=== PATIENT | female | born 1970 | race Caucasian/White ===

== ENCOUNTER 2018-03-21 22:04 | Observation (INO) | payer OTHER ==
[~2018-03-21] VITALS: Ht 160 cm; Wt 81.6 kg
[~2018-03-21 22:04] MED LIST: ACETAMINOPHEN-1 EAC1 PO; ALBUTEROL INHAL17 GM IH; AMOXICILLIN 50500 MG PO; ASPIR 8181 MG PO; AURALGAN EAR DR14 ML OT; AZITHROMYCIN 2250 MG PO; BACTRIM DS TAB1 EACH PO; CARAFATE 1 GM TA1 G1 PO; CLARITIN10 MG PO; COLACE100 MG PO; FLEXERIL PO; HYDROCODONE-AP1 EAC6 PO; IBUPROFEN 800800 M1 PO; IBUPROFEN 800800 MG PO; KEFLEX500 MG PO; LIDOCAINE VISC100 M1 MM; LIPITOR10 MG PO; MEDROLDOSEPACK PO; MOBIC7.5 M1 PO; NAPROSYN500 MG PO; NOHOMEMEDICATIONS; NORCO 5-325 TA1 EACH PO; PEPCID40 MG PO; POLYMYXIN B/TMP10 ML OP; PREDNISONE 20 M20 MG PO; PRILOSEC 20 MG20 MG PO; PRILOSEC OTC20 MG PO; PRILOSEC20 MG PO; ROBAXIN 750 MG750 M1 PO; SENOKOT-S1 TA2 PO; TESSALON PERLE100 MG PO; TRAMADOL 50 MG50 MG PO; ULTRAM 50MG TAB50 MG PO; VENTOLIN HFA 1818 GM INH; VICODIN 5-5001 EACH PO; VISINE ALLERGY30 ML OP; ZOFRAN ODT4 MG PO; ZOFRAN4 MG PO; ZPAK PO
[2018-03-21 22:06] VITALS: BP 137/72
[2018-03-21] MEDS ORDERED: ZANAFLEX4 MG PO (22:18)
[2018-03-21 22:45] LABS: ABSOLUTE BASOPHILS 0.1 thou/uL (0.0-0.2); ABSOLUTE EOSINOPHILS 0.4 thou/uL (0.0-0.7); ABSOLUTE LYMPHOCYTES 2.3 thou/uL (0.8-5.3); ABSOLUTE MONOCYTES 0.8 thou/uL (0.0-1.2); ABSOLUTE NEUTROPHILS 5.1 thou/uL (1.6-8.1); HEMATOCRIT 38.4 % (37.0-47.0); HEMOGLOBIN 13.1 gm/dL (12.0-15.0); LYMPHOCYTES 26.6 %; MCH 30.2 pg (26.0-34.0); MCV 88.8 fL (80.0-100.0); MONOCYTES 9.7 %; NUCLEATED RBCS 0 /100WBC; PLATELET COUNT* 190 thou/uL (150-400); POLYS 58.7 %; RBC 4.32 mil/uL (4.20-5.00); RDW-CV 13.9 % (10.5-14.5); WBC 8.7 thou/uL (4.0-11.0)
[2018-03-21 22:56] LABS: ANION GAP 8 mmol/L (7-16); BUN 10 mg/dL (7-18); CALCIUM 8.4 mg/dL (8.5-10.1); CHLORIDE 106 mmol/L (98-107); CO2 26 mmol/L (21-32); CREATININE 0.6 mg/dL (0.6-1.3); GLUCOSE 126 mg/dL (70-99); POTASSIUM 3.6 mmol/L (3.5-5.1); SODIUM 140 mmol/L (136-145)
[2018-03-21 23:04] LABS: ALBUMIN 3.4 g/dL (3.4-5.0); ALKALINE PHOSPHATASE 69 U/L (46-116); SGOT 11 U/L (15-37); SGPT 24 U/L (30-65); TOTAL BILIRUBIN 0.3 mg/dL (<0.1-1.0); TROPONIN-I LEVEL <0.06 ng/mL (<0.06)
[2018-03-21 23:14] LABS: URINE BILIRUBIN NEGATIVE (Negative); URINE BLOOD NEGATIVE (Negative); URINE CLARITY CLEAR; URINE COLOR YELLOW; URINE GLUCOSE-RANDOM NEGATIVE (Negative); URINE KETONES NEGATIVE (Negative); URINE LEUKOCYTES-REFLEX NEGATIVE (Negative); URINE NITRITE-REFLEX NEGATIVE (Negative); URINE PROTEIN NEGATIVE (Negative); URINE SPECIFIC GRAVITY 1.025 (1.005-1.030)
[2018-03-22 02:29] VITALS: BP 127/73
[2018-03-22 02:45] VITALS: BP 99/31
[2018-03-22 08:00] VITALS: BP 92/50
[2018-03-22 09:00] VITALS: BP 111/57
[2018-03-22 11:00] VITALS: BP 111/57
--- NOTE | 2018-03-22 13:51 | 2DMMODE ---
[place] [address] 2 D/M-MODE ECHOCARDIOGRAM Name: ANTOINETTE REBOLLAR Room: [address] IN .R.#: [id number] Admission: 03/22/18 Attend Phys: Raul Jolly, Discharge: Date of : 66 Date of Service: 03/22/18 1350 Report #: [id number] THIS REPORT FOR: //name// APPROVED REPORT Study performed: 03/22/2018 10:25:50 EXAM: Comprehensive 2D, Doppler, and color-flow Echocardiogram Patient Location: Bedside BSA: 1.83 HR: 53 bpm BP: 92/50 mmHg Other Information Study Quality: Good Indications Chest Pain 2D Dimensions LVEF(%): 49.12 (>50%) IVSd: 11.12 (7-11mm) LVOT Diam: 19.23 (18-24mm) LVDd: 38.76 mm PWd: 9.19 (7-11mm) Ascending Ao: 24.14 (22-36mm) LVDs: 29.30 (25-40mm) Aortic Root: 24.75 mm Purcell's LVEF: 49.12 % Volumes Left Atrial Volume (Systole) LA ESV Index: 25.60 mL/m2 Aortic Valve AoV Peak Jeronimo.: 1.29 m/s AO Peak Gr.: 6.63 mmHg LVOT Max P.69 mmHg AO Mean Gr.: 3.53 mmHg LVOT Mean P.55 mmHg LVOT Max V: 0.96 m/s AO V2 VTI: 27.61 cm LVOT Mean V: 0.56 m/s DESI (VTI): 2.53 cm2 LVOT V1 VTI: 24.06 cm Mitral Valve E/A Ratio: 1.87 MV Decel. Time: 211.34 ms MV E Max Jeronimo.: 0.85 m/[place] [address] 2 D/M-MODE ECHOCARDIOGRAM Name: ANTOINETTE REBOLLAR Room: [address] IN .R.#: [id number] Admission: 03/22/18 Attend Phys: Raul Jolly, Discharge: Date of : 66 Date of Service: 03/22/18 1350 Report #: [id number] MV PHT: 61.29 ms MVA (PHT): 3.59 cm2 TDI E/Lateral E': 5.67 E/Medial E': 5.31 Medial E' Jeronimo.: 0.16 m/s Lateral E' Jeronimo.: 0.15 m/s Pulmonary Valve PV Peak Jeronimo.: 0.85 m/s PV Peak Gr.: 2.89 mmHg Tricuspid Valve RAP Estimate: 5.00 mmHg TR Peak Gr.: 29.63 mmHg RVSP: 34.63 mmHg PA Pressure: 34.63 mmHg Left Ventricle The left ventricle is normal size. There is normal LV segmental wall motion. There is normal left ventricular wall thickness. Left ventricular systolic function is normal. LVEF is 60-65%. The left ventricular diastolic function is normal. Right Ventricle The right ventricle is normal size. The right ventricular systolic function is normal. Atria The left atrium size is normal. The right atrium size is normal. Aortic Valve The aortic valve is normal in structure. No aortic regurgitation is present. There is no aortic valvular stenosis. Mitral Valve The mitral valve is normal in structure. Trace mitral regurgitation. No evidence of mitral valve stenosis. Tricuspid Valve The tricuspid valve is normal in structure. Trace tricuspid regurgitation. Pulmonic Valve The pulmonary valve is normal in structure. There is no [place]mon[place] [address] 2 D/M-MODE ECHOCARDIOGRAM Name: ANTOINETTE REBOLLAR Room: [address] IN [facility]#: [id number] Admission: 03/22/18 Attend Phys: Raul Jolly, Discharge: Date of : 66 Date of Service: 03/22/18 1350 Report #: [id number] Great Vessels The aortic root is normal in size. IVC is normal in size and collapses with >50% inspiration Pericardium There is no pericardial effusion. <Conclusion> The left ventricle is normal size. There is normal left ventricular wall thickness. Left ventricular systolic function is normal. LVEF is 60-65%. The left ventricular diastolic function is normal. Trace mitral regurgitation. Trace tricuspid regurgitation. IVC is normal in size and collapses with >50% inspiration <ELECTRONICALLY SIGNED> By: Gustabo Lemon MD, FACC 03/22/18 1350 1350 1350 Gustabo Lemon MD, FACC /INF
--- NOTE | 2018-03-22 14:03 | EKG ---
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
--- NOTE | 2018-03-22 14:04 | EKG ---
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
--- NOTE | 2018-03-22 16:58 | CARDNUC ---
[place] [address] CARDIAC NUCLEAR IMAGING REPORT Name: ANTOINETTE REBOLLAR Room: [address] IN [facility]#: [id number] Admission: 03/22/18 Attend Phys: Raul Jolly, Discharge: Date of : 66 Date of Service: 03/22/18 1658 Report #: [id number] THIS REPORT FOR: //name// APPROVED REPORT Study performed: 03/22/2018 00:00:00 Indication: Chest pain, Dyspnea Patient Location: In-Patient Room #: 209 Stress Tech: Mary Medrano Stress Nurse: Sharon Guy RN Ht: 5 ft 3 in Wt: 180 lbs BSA: 1.85 m2 BMI: 31.88 Medical History Medical History: hyperlipidemia Medications: no cardiac meds Allergies: nkda Cardiac Risk Factors: age, hyperlipidemia, tobacco Previous Cardiac Procedures: none Exercise History: Physically active Stress Test Details Stress Test: Pharmacologic stress testing performed using 0.4 mg of regadenoson per 5 mL given IV over 10 seconds. Reason for pharmacologic stress test: physical limitation. HR Resting HR: 59 bpm Max Heart Rate (APMHR): 170 bpm Max HR Achieved: 105 bpm Target HR (85% APMHR): 144 bpm % of APMHR: 61 Recovery HR: 65 bpm BP Resting BP: 113/61 mmHg Max BP: 120/67 mmHg ECG Resting ECG: Sinus Rhythm, normal EKG Stress ECG: Sinus Tachycardia ST Change: None Arrhythmia: None Recovery ECG: Sinus Rhythm, [place] [address] CARDIAC NUCLEAR IMAGING REPORT Name: ANTOINETTE REBOLLAR Room: [address]#: [id number] Admission: 03/22/18 Attend Phys: Raul Jolly, Discharge: Date of : 66 Date of Service: 03/22/18 1658 Report #: [id number] Change: None Recovery Arrhythmia: None Clinical Reason for Termination: Completed protocol Stress Symptoms: none Exercise duration: 0 min sec Exercise capacity: 1 METs The patient had atypical symptoms related to Lexiscan. She did not have chest discomfort. Nurse Comments lexiscan reversed with 60 mg iv cadffeine for nausea Stress ECG Conclusion The baseline 12-lead electrocardiogram showed sinus rhythm thousand Mr. T wave abnormality. EKGs obtained during and post Lexiscan infusion show sinus rhythm and sinus tachycardia with no significant ST or T wave changes when compared to baseline. There were no stress-induced arrhythmias. Study Quality Study: Good Artifact: Mild apical thinning Study Data At rest, the left ventricular ejection fraction was 65%.. Post stress, the left ventricular ejection was 6 CTA%.. TID = 1.06. Perfusion Very focal mild photopenia of the apex. No other defects identified. Wall Motion Normal left ventricular wall motion. Nuclear Conclusion ECG Findings: negative for ischemia Clinical Findings: negative for ischemia Nuclear Findings: negative for ischemia Exercise Capacity: not assessed Left Ventricular Function: normal Risk Study: low Myocardial perfusion images show no defect to suggest infarct or ischemia. Left ventricular systolic function [place] [address] CARDIAC NUCLEAR IMAGING REPORT Name: ANTOINETTE REBOLLAR Room: [address] IN [facility].#: [id number] Admission: 03/22/18 Attend Phys: Raul Jolly, Discharge: Date of : 66 Date of Service: 03/22/181657 Report #: [id number] studies. This is a low risk study. <Conclusion> The baseline 12-lead electrocardiogram showed sinus rhythm thousand Mr. T wave abnormality. EKGs obtained during and post Lexiscan infusion show sinus rhythm and sinus tachycardia with no significant ST or T wave changes when compared to baseline. There were no stress-induced arrhythmias. <ELECTRONICALLY SIGNED> By: Gustabo Lemon MD, FACC 03/22/181657 57 1658 Gustabo Lemon MD, FACC /INF
[2018-03-22 19:25] VITALS: BP 108/52
[2018-03-23] VITALS: BP 115/52
[2018-03-23 04:00] VITALS: BP 103/44
[2018-03-23] MEDS ORDERED: PROTONIX40 M1 PO (08:41)
[2018-03-23 09:00] VITALS: BP 117/54
[2018-03-23 09:14] VITALS: BP 103/44
== END 2018-03-23 11:00 | disposition home or self-care (01) ==
LOC: M.ERS 22:04 → M.2W 03-22 00:39 → M.TBA-ER 03-22 00:39 → M.2W 03-22 00:39
PROVIDERS: Personal Emergency Response Attendant; ADMIT Internal Medicine
DX: R07.9 Chest pain, unspecified (principal); E78.5 Hyperlipidemia, unspecified; K21.9 Gastro-esophageal reflux disease without esophagitis; R50.9 Fever, unspecified; N63.10 Unspecified lump in the right breast, unspecified quadrant; R42 Dizziness and giddiness; R51 Headache; F17.210 Nicotine dependence, cigarettes, uncomplicated; Z90.89 Acquired absence of other organs; Z98.890 Other specified postprocedural states

== ENCOUNTER 2018-07-06 18:04 | Emergency (ER) | payer OTHER ==
[~2018-07-06] VITALS: Ht 160 cm; Wt 77.1 kg
[~2018-07-06 18:04] MED LIST changes: +PROTONIX40 M1 PO; +ZANAFLEX4 MG PO
[2018-07-06] MEDS ORDERED: NAPROSYN500 MG PO (18:19)
[2018-07-06 18:43] VITALS: BP 109/68
== END 2018-07-06 18:44 | disposition home or self-care (01) ==
LOC: M.ERS 18:04
DX: M72.2 Plantar fascial fibromatosis (principal); K21.9 Gastro-esophageal reflux disease without esophagitis; E78.00 Pure hypercholesterolemia, unspecified; Z90.49 Acquired absence of other specified parts of digestive tract; F17.210 Nicotine dependence, cigarettes, uncomplicated

== ENCOUNTER 2019-05-31 23:02 | Emergency (ER) | payer OTHER ==
[~2019-05-31] VITALS: Ht 162.6 cm; Wt 79.4 kg
[~2019-05-31 23:02] MED LIST changes: +MOBIC15 MG PO; +SYNTHROID112 MC1 PO
[2019-06-01] MEDS ORDERED: COMPAZINE10 M2 PO (02:36)
[2019-06-01 02:55] VITALS: BP 104/54
== END 2019-06-01 02:55 | disposition home or self-care (01) ==
LOC: M.ERS 23:02
DX: R51 Headache (principal); F17.210 Nicotine dependence, cigarettes, uncomplicated; E78.00 Pure hypercholesterolemia, unspecified; K21.9 Gastro-esophageal reflux disease without esophagitis; E03.9 Hypothyroidism, unspecified; Z90.11 Acquired absence of right breast and nipple; Z90.49 Acquired absence of other specified parts of digestive tract

== ENCOUNTER 2019-08-02 23:31 | Emergency (ER) | payer OTHER ==
[~2019-08-02] VITALS: Ht 160 cm; Wt 78.9 kg
[~2019-08-02 23:31] MED LIST changes: +COMPAZINE10 M2 PO
[2019-08-02] MEDS ORDERED: MELOXICAM7.5 MG PO (23:39)
[2019-08-03] MEDS ORDERED: AMOXICILLIN875 MG PO (00:02)
[2019-08-03] MEDS ORDERED: PROAIR HFA8.5 GM INH (00:02)
[2019-08-03] MEDS ORDERED: PREDNISONE50 MG PO (00:02)
[2019-08-03 00:15] VITALS: BP 133/69
== END 2019-08-03 00:15 | disposition home or self-care (01) ==
LOC: M.ERS 23:31
DX: J02.9 Acute pharyngitis, unspecified (principal); M79.18 Myalgia, other site; E03.9 Hypothyroidism, unspecified; E78.00 Pure hypercholesterolemia, unspecified; K21.9 Gastro-esophageal reflux disease without esophagitis; F17.210 Nicotine dependence, cigarettes, uncomplicated; Z98.51 Tubal ligation status

== ENCOUNTER 2019-08-21 22:12 | Emergency (ER) | payer OTHER ==
[~2019-08-21] VITALS: Ht 162.6 cm; Wt 79.8 kg
[~2019-08-21 22:12] MED LIST changes: +AMOXICILLIN875 MG PO; +MELOXICAM7.5 MG PO; +PREDNISONE50 MG PO; +PROAIR HFA8.5 GM INH
[2019-08-21 22:48] LABS: ABSOLUTE BASOPHILS 0.1 thou/uL (0.0-0.2); ABSOLUTE EOSINOPHILS 0.3 thou/uL (0.0-0.7); ABSOLUTE LYMPHOCYTES 2.2 thou/uL (0.8-5.3); ABSOLUTE MONOCYTES 0.8 thou/uL (0.0-1.2); ABSOLUTE NEUTROPHILS 4.6 thou/uL (1.6-8.1); BASOPHILS 1.3 %; EOSINOPHILS 4.2 %; HEMATOCRIT 36.9 % (37.0-47.0); HEMOGLOBIN 12.7 gm/dL (12.0-15.0); LYMPHOCYTES 27.4 %; MCH 30.5 pg (26.0-34.0); MCHC 34.5 g/dL (28.0-37.0); MCV 88.5 fL (80.0-100.0); MPV 9.8 fl. (7.2-11.1); NUCLEATED RBCS 0 /100WBC; PLATELET COUNT* 173 thou/uL (150-400); POLYS 57.1 %; RBC 4.17 mil/uL (4.20-5.00); RDW-CV 13.6 % (10.5-14.5); WBC 8.1 thou/uL (4.0-11.0)
[2019-08-21 22:57] LABS: CALCIUM 8.8 mg/dL (8.5-10.1); POTASSIUM 3.5 mmol/L (3.5-5.1)
[2019-08-21 23:02] LABS: ALBUMIN 3.5 g/dL (3.4-5.0); TOTAL BILIRUBIN 0.4 mg/dL (<0.1-1.0); TOTAL PROTEIN 7.2 g/dL (6.4-8.2)
[2019-08-22 00:40] LABS: INFLUENZA A ANTIGEN Negative (Negative); INFLUENZA B ANTIGEN Negative (Negative)
[2019-08-22] MEDS ORDERED: ULTRAM50 MG PO (00:46)
[2019-08-22 00:53] VITALS: BP 119/42
== END 2019-08-22 00:55 | disposition home or self-care (01) ==
LOC: M.ERS 22:12
PROVIDERS: Personal Emergency Response Attendant
DX: B34.9 Viral infection, unspecified (principal); K21.9 Gastro-esophageal reflux disease without esophagitis; E78.00 Pure hypercholesterolemia, unspecified; E03.9 Hypothyroidism, unspecified; F17.210 Nicotine dependence, cigarettes, uncomplicated; Z98.51 Tubal ligation status

== ENCOUNTER 2020-03-18 19:13 | Emergency (ER) | payer OTHER ==
[~2020-03-18] VITALS: Ht 162.6 cm; Wt 83.9 kg
[~2020-03-18 19:13] MED LIST changes: +ULTRAM50 MG PO
[2020-03-18 19:58] LABS: ABSOLUTE EOSINOPHILS 0.5 thou/uL (0.0-0.7); ABSOLUTE LYMPHOCYTES 2.9 thou/uL (0.8-5.3); ABSOLUTE MONOCYTES 0.9 thou/uL (0.0-1.2); ABSOLUTE NEUTROPHILS 5.9 thou/uL (1.6-8.1); BASOPHILS 0.3 %; EOSINOPHILS 4.4 %; HEMATOCRIT 39.9 % (37.0-47.0); HEMOGLOBIN 14.3 gm/dL (12.0-15.0); LYMPHOCYTES 28.6 %; MCH 31.7 pg (26.0-34.0); MCHC 35.8 g/dL (28.0-37.0); MCV 88.5 fL (80.0-100.0); MONOCYTES 9.2 %; NUCLEATED RBCS 0 /100WBC; PLATELET COUNT* 177 thou/uL (150-400); POLYS 57.5 %; RDW-CV 13.7 % (10.5-14.5); WBC 10.2 thou/uL (4.0-11.0)
[2020-03-18 20:03] LABS: CREATININE 0.9 mg/dL (0.6-1.3); POTASSIUM 3.6 mmol/L (3.5-5.1)
[2020-03-18 20:07] LABS: ALBUMIN 4.1 g/dL (3.4-5.0); TOTAL BILIRUBIN 0.6 mg/dL (<0.1-1.0); TOTAL PROTEIN 8.1 g/dL (6.4-8.2)
[2020-03-18 20:35] LABS: PROTIME 10.5 Seconds (9.20-11.50)
[2020-03-18] MEDS ORDERED: LEVOTHYROXINE150 MCG PO (21:19)
[2020-03-18 21:36] VITALS: BP 126/61
--- NOTE | 2020-03-19 15:59 | EKG ---
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 03/19/20 1558 22 22 Taran Skaggs MD, [facility] /EPI
== END 2020-03-18 21:36 | disposition home or self-care (01) ==
LOC: M.ERS 19:13
PROVIDERS: Personal Emergency Response Attendant
DX: R07.89 Other chest pain (principal); E03.9 Hypothyroidism, unspecified; E78.00 Pure hypercholesterolemia, unspecified; K21.9 Gastro-esophageal reflux disease without esophagitis; E78.5 Hyperlipidemia, unspecified; J02.9 Acute pharyngitis, unspecified; Z98.51 Tubal ligation status

== ENCOUNTER 2020-03-30 15:55 | Emergency (ER) | payer OTHER ==
[~2020-03-30] VITALS: Ht 162.6 cm; Wt 83.9 kg
[~2020-03-30 15:55] MED LIST changes: +LEVOTHYROXINE150 MCG PO
[2020-03-30] MEDS ORDERED: PREDNISONE50 MG PO (16:40)
[2020-03-30] MEDS ORDERED: FLEXERIL PO (16:40)
[2020-03-30] MEDS ORDERED: NORCO 5-325 TA1 EAC1 PO (16:40)
[2020-03-30] MEDS ORDERED: IBUPROFEN 800800 M1 PO (16:40)
[2020-03-30 16:52] VITALS: BP 114/70
== END 2020-03-30 16:54 | disposition home or self-care (01) ==
LOC: M.ERS 15:55
DX: M54.41 Lumbago with sciatica, right side (principal); F17.210 Nicotine dependence, cigarettes, uncomplicated; E78.00 Pure hypercholesterolemia, unspecified; K21.9 Gastro-esophageal reflux disease without esophagitis; E03.9 Hypothyroidism, unspecified; Z98.51 Tubal ligation status

== ENCOUNTER 2020-12-02 16:40 | Emergency (ER) | payer OTHER ==
[~2020-12-02] VITALS: Ht 160 cm; Wt 88.5 kg
[~2020-12-02 16:40] MED LIST changes: +NORCO 5-325 TA1 EAC1 PO
[2020-12-02 17:41] LABS: ABSOLUTE BASOPHILS 0.1 thou/uL (0.0-0.2); ABSOLUTE EOSINOPHILS 0.3 thou/uL (0.0-0.7); ABSOLUTE LYMPHOCYTES 2.6 thou/uL (0.8-5.3); ABSOLUTE MONOCYTES 0.6 thou/uL (0.0-1.2); ABSOLUTE NEUTROPHILS 5.9 thou/uL (1.6-8.1); BASOPHILS 1.5 %; HEMATOCRIT 38.2 % (37.0-47.0); HEMOGLOBIN 12.9 gm/dL (12.0-15.0); LYMPHOCYTES 27.4 %; MCH 28.7 pg (26.0-34.0); MCHC 33.9 g/dL (28.0-37.0); MCV 84.7 fL (80.0-100.0); MONOCYTES 6.4 %; MPV 9.9 fl. (7.2-11.1); NUCLEATED RBCS 0 /100WBC; PLATELET COUNT* 175 thou/uL (150-400); POLYS 61.7 %; RDW-CV 13.2 % (10.5-14.5); WBC 9.6 thou/uL (4.0-11.0)
[2020-12-02 17:53] LABS: APTT 23.3 Seconds (25.0-31.3); INR 0.9; PROTIME 9.9 Seconds (9.20-11.50)
[2020-12-02 17:58] LABS: CALCIUM 9.1 mg/dL (8.5-10.1); CREATININE 0.6 mg/dL (0.6-1.3); POTASSIUM 4.3 mmol/L (3.5-5.1)
[2020-12-02 18:08] LABS: ALBUMIN 3.5 g/dL (3.4-5.0); MAGNESIUM 2.2 mg/dL (1.8-2.4); TOTAL BILIRUBIN 0.5 mg/dL (<0.1-1.0); TOTAL PROTEIN 7.2 g/dL (6.4-8.2)
[2020-12-02] MEDS ORDERED: HYDROCODON-ACE1 EAC7 PO (18:43)
[2020-12-02 18:54] VITALS: BP 161/99
--- NOTE | 2020-12-03 09:42 | EKG ---
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[place] : 1970 Requested By: Ricardo Dixon Order Number: [id number] MD: Gustabo Lemon Measurements Intervals [place] Rate: 68 P: 53 [place]: 137 QRS: 60 QRSD: 86 T: 32 QT: 405 QTc: 431 Interpretive Statements Sinus rhythm Compared to ECG 03/18/2020 19:23:41 No significant changes Electronically Signed On 12-03-2020 9:42:19 RECREATION ACTIVITIES COORDINATOR by Gustabo Lemon [email or web address] <ELECTRONICALLY SIGNED> By: Gustabo Lemon MD, [facility] 12/03/20 0942 1653 165 Gustabo Lemon MD, [facility] /EPI
== END 2020-12-02 18:56 | disposition home or self-care (01) ==
LOC: M.ERS 16:40
PROVIDERS: Emergency Medicine Emergency Medical Services
DX: R07.89 Other chest pain (principal); Z20.822 Contact with and (suspected) exposure to COVID-19; K21.9 Gastro-esophageal reflux disease without esophagitis; E78.00 Pure hypercholesterolemia, unspecified; E03.9 Hypothyroidism, unspecified; F17.210 Nicotine dependence, cigarettes, uncomplicated; Z98.51 Tubal ligation status

== ENCOUNTER 2021-02-25 19:40 | Emergency (ER) | payer OTHER ==
[~2021-02-25] VITALS: Ht 160 cm; Wt 93.0 kg
[~2021-02-25 19:40] MED LIST changes: +HYDROCODON-ACE1 EAC7 PO
[2021-02-25] MEDS ORDERED: LEVO-T50 MCG PO (21:29)
[2021-02-25] MEDS ORDERED: PROAIR HFA8.5 GM INH (21:58)
[2021-02-25 22:12] VITALS: BP 149/80
== END 2021-02-25 22:25 | disposition home or self-care (01) ==
LOC: M.ERS 19:40
DX: J06.9 Acute upper respiratory infection, unspecified (principal); Z20.822 Contact with and (suspected) exposure to COVID-19; E03.9 Hypothyroidism, unspecified; E78.00 Pure hypercholesterolemia, unspecified; K21.9 Gastro-esophageal reflux disease without esophagitis; Z98.51 Tubal ligation status

== ENCOUNTER 2021-05-19 16:52 | Emergency (ER) | payer OTHER ==
[~2021-05-19] VITALS: Ht 162.6 cm; Wt 93.0 kg
[~2021-05-19 16:52] MED LIST changes: +LEVO-T50 MCG PO
[2021-05-19] MEDS ORDERED: VENTOLIN HFA INH8 GM INH (17:16)
[2021-05-19] MEDS ORDERED: MEDROLDOSEPACK PO (17:16)
[2021-05-19 17:32] VITALS: BP 151/97
== END 2021-05-19 17:33 | disposition home or self-care (01) ==
LOC: M.ERS 16:52
DX: J45.909 Unspecified asthma, uncomplicated (principal); E78.00 Pure hypercholesterolemia, unspecified; E03.9 Hypothyroidism, unspecified; F17.210 Nicotine dependence, cigarettes, uncomplicated; K21.9 Gastro-esophageal reflux disease without esophagitis; Z98.51 Tubal ligation status

== ENCOUNTER 2021-12-05 13:31 | Emergency (ER) | payer OTHER ==
[~2021-12-05] VITALS: Ht 162.6 cm; Wt 70.3 kg
[~2021-12-05 13:31] MED LIST changes: +VENTOLIN HFA INH8 GM INH
[2021-12-05 14:27] VITALS: BP 147/89
== END 2021-12-05 14:27 | disposition home or self-care (01) ==
LOC: M.ERS 13:31
DX: H61.22 Impacted cerumen, left ear (principal); E78.00 Pure hypercholesterolemia, unspecified; K21.9 Gastro-esophageal reflux disease without esophagitis; E03.9 Hypothyroidism, unspecified; F17.210 Nicotine dependence, cigarettes, uncomplicated; Z98.51 Tubal ligation status